=== PATIENT | male | born 1965 | race Caucasian/White ===

== ENCOUNTER 2019-12-01 19:38 | Emergency (ER) | payer OTHER ==
[~2019-12-01] VITALS: Ht 175.3 cm; Wt 76.2 kg
[2019-12-01] MEDS ORDERED: AMOXICILLIN875 MG PO (21:16)
[2019-12-01] MEDS ORDERED: CIPROFLOXIN HC2.5 M1 EA. EAR (21:16)
[2019-12-01 21:33] LABS: INFLUENZA A ANTIGEN Negative (Negative); INFLUENZA B ANTIGEN Negative (Negative)
[2019-12-01 21:35] LABS: ABSOLUTE EOSINOPHILS 0.1 thou/uL (0.0-0.7); ABSOLUTE LYMPHOCYTES 2.5 thou/uL (0.8-5.3); ABSOLUTE MONOCYTES 0.6 thou/uL (0.0-1.2); ABSOLUTE NEUTROPHILS 7.1 thou/uL (1.6-8.1); BASOPHILS 0.3 %; HEMATOCRIT 44.8 % (42.0-52.0); HEMOGLOBIN 15.3 gm/dL (14.0-18.0); LYMPHOCYTES 23.7 %; MCH 31.1 pg (26.0-34.0); MCHC 34.2 g/dL (28.0-37.0); MCV 90.9 fL (80.0-100.0); MONOCYTES 6.2 %; MPV 7.5 fl. (7.2-11.1); NUCLEATED RBCS 0 /100WBC; PLATELET COUNT* 249 thou/uL (150-400); POLYS 68.8 %; RBC 4.92 mil/uL (4.50-6.00); RDW-CV 14.2 % (10.5-14.5); WBC 10.4 thou/uL (4.0-11.0)
[2019-12-01 21:48] VITALS: BP 128/79
[2019-12-01 21:49] LABS: CALCIUM 9.2 mg/dL (8.5-10.1); CREATININE 0.7 mg/dL (0.6-1.3); POTASSIUM 3.7 mmol/L (3.5-5.1)
== END 2019-12-01 21:48 | disposition home or self-care (01) ==
LOC: M.ERS 19:38
PROVIDERS: Personal Emergency Response Attendant
DX: H66.91 Otitis media, unspecified, right ear (principal); R42 Dizziness and giddiness; R20.0 Anesthesia of skin

== ENCOUNTER 2020-08-28 20:51 | Emergency (ER) | payer OTHER ==
[~2020-08-28] VITALS: Ht 172.7 cm; Wt 77.1 kg
[~2020-08-28 20:51] MED LIST: AMOXICILLIN875 MG PO; CIPROFLOXIN HC2.5 M1 EA. EAR
[2020-08-28 21:35] LABS: ABSOLUTE EOSINOPHILS 0.1 thou/uL (0.0-0.7); ABSOLUTE LYMPHOCYTES 2.9 thou/uL (0.8-5.3); ABSOLUTE MONOCYTES 0.6 thou/uL (0.0-1.2); ABSOLUTE NEUTROPHILS 6.1 thou/uL (1.6-8.1); BASOPHILS 0.4 %; EOSINOPHILS 1.1 %; HEMATOCRIT 42.1 % (42.0-52.0); HEMOGLOBIN 14.3 gm/dL (14.0-18.0); LYMPHOCYTES 29.9 %; MCH 31.3 pg (26.0-34.0); MCV 92.1 fL (80.0-100.0); MONOCYTES 5.8 %; NUCLEATED RBCS 0 /100WBC; PLATELET COUNT* 227 thou/uL (150-400); POLYS 62.8 %; RBC 4.57 mil/uL (4.50-6.00); RDW-CV 14.1 % (10.5-14.5); WBC 9.8 thou/uL (4.0-11.0)
[2020-08-28 21:42] LABS: CALCIUM 9.1 mg/dL (8.5-10.1); CREATININE 0.8 mg/dL (0.6-1.3); POTASSIUM 3.7 mmol/L (3.5-5.1)
[2020-08-28 21:44] LABS: PROTIME 9.9 Seconds (9.20-11.50)
[2020-08-28 21:46] LABS: INR < 0.9
[2020-08-28 21:53] LABS: ALBUMIN 3.8 g/dL (3.4-5.0); MAGNESIUM 2.2 mg/dL (1.8-2.4); TOTAL BILIRUBIN 0.3 mg/dL (<0.1-1.0); TOTAL PROTEIN 6.8 g/dL (6.4-8.2)
[2020-08-28 22:41] LABS: URINE BILIRUBIN NEGATIVE (Negative); URINE BLOOD TRACE (Negative); URINE CLARITY CLEAR; URINE COLOR YELLOW; URINE GLUCOSE-RANDOM NEGATIVE (Negative); URINE KETONES NEGATIVE (Negative); URINE LEUKOCYTES-REFLEX NEGATIVE (Negative); URINE NITRITE-REFLEX NEGATIVE (Negative); URINE PROTEIN NEGATIVE (Negative); URINE UROBILINOGEN 0.2 E.U./dl (0.2-1.0)
[2020-08-28 22:52] LABS: AMP/METHAMP Negative (Negative); BARBITURATES Negative (Negative); BENZODIAZEPINES Negative (Negative); COCAINE Negative (Negative); METHADONE Negative (Negative); OPIATES Negative (Negative); PCP Negative (Negative); THC Negative (Negative)
[2020-08-29] MEDS ORDERED: AMOXICILLIN 50500 MG PO (00:03)
[2020-08-29 00:11] VITALS: BP 126/82
--- NOTE | 2020-08-29 10:05 | EKG ---
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
== END 2020-08-29 00:11 | disposition home or self-care (01) ==
LOC: M.ERS 20:51
PROVIDERS: Emergency Medicine
DX: R07.89 Other chest pain (principal); H92.01 Otalgia, right ear

== ENCOUNTER 2021-07-27 17:15 | Emergency (ER) | payer OTHER ==
[~2021-07-27] VITALS: Ht 172.7 cm; Wt 72.6 kg
[~2021-07-27 17:15] MED LIST changes: +AMOXICILLIN 50500 MG PO
[2021-07-27 17:55] LABS: ABSOLUTE BASOPHILS 0.1 thou/uL (0.0-0.2); ABSOLUTE EOSINOPHILS 0.1 thou/uL (0.0-0.7); ABSOLUTE MONOCYTES 0.5 thou/uL (0.0-1.2); ABSOLUTE NEUTROPHILS 4.5 thou/uL (1.6-8.1); BASOPHILS 0.7 %; EOSINOPHILS 1.3 %; HEMATOCRIT 42.4 % (42.0-52.0); HEMOGLOBIN 14.4 gm/dL (14.0-18.0); LYMPHOCYTES 37.4 %; MCH 30.9 pg (26.0-34.0); MCV 90.7 fL (80.0-100.0); MONOCYTES 5.6 %; MPV 6.9 fl. (7.2-11.1); NUCLEATED RBCS 0 /100WBC; PLATELET COUNT* 249 thou/uL (150-400); RBC 4.67 mil/uL (4.50-6.00); RDW-CV 13.6 % (10.5-14.5); WBC 8.1 thou/uL (4.0-11.0)
[2021-07-27] MEDS ORDERED: VISTARIL 25 MG25 M1 PO (18:26)
[2021-07-27] MEDS ORDERED: APAP W/CODEINE1 TA2 PO (18:26)
[2021-07-27] MEDS ORDERED: FLEXERIL PO (18:26)
[2021-07-27 18:28] LABS: URINE BILIRUBIN NEGATIVE (Negative); URINE BLOOD TRACE (Negative); URINE CLARITY CLEAR; URINE COLOR YELLOW; URINE GLUCOSE-RANDOM NEGATIVE (Negative); URINE KETONES NEGATIVE (Negative); URINE LEUKOCYTES-REFLEX NEGATIVE (Negative); URINE NITRITE-REFLEX NEGATIVE (Negative); URINE PROTEIN NEGATIVE (Negative); URINE UROBILINOGEN 0.2 E.U./dl (0.2-1.0)
[2021-07-27 18:29] LABS: CALCIUM 8.9 mg/dL (8.5-10.1); CREATININE 0.7 mg/dL (0.6-1.3); POTASSIUM 3.9 mmol/L (3.5-5.1)
[2021-07-27 18:40] VITALS: BP 145/70
[2021-07-27 18:42] LABS: ALBUMIN 3.9 g/dL (3.4-5.0); CK-MB MASS 2.7 ng/mL (<0.5-3.6); MAGNESIUM 2.3 mg/dL (1.8-2.4); TOTAL BILIRUBIN 0.3 mg/dL (<0.1-1.0); TOTAL PROTEIN 7.1 g/dL (6.4-8.2)
--- NOTE | 2021-07-28 09:32 | EKG ---
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
== END 2021-07-27 18:42 | disposition home or self-care (01) ==
LOC: M.ERS 17:15
PROVIDERS: Family Medicine; Physician Assistant
DX: F41.9 Anxiety disorder, unspecified (principal); R07.89 Other chest pain; M54.2 Cervicalgia

== ENCOUNTER 2021-08-19 14:40 | Emergency (ER) | payer OTHER ==
[~2021-08-19] VITALS: Ht 175.3 cm; Wt 74.4 kg
[~2021-08-19 14:40] MED LIST changes: +APAP W/CODEINE1 TA2 PO; +FLEXERIL PO; +VISTARIL 25 MG25 M1 PO
[2021-08-19 16:14] LABS: URINE BILIRUBIN NEGATIVE (Negative); URINE BLOOD TRACE (Negative); URINE CLARITY CLEAR; URINE COLOR YELLOW; URINE GLUCOSE-RANDOM NEGATIVE (Negative); URINE KETONES NEGATIVE (Negative); URINE LEUKOCYTES NEGATIVE (Negative); URINE NITRITE NEGATIVE (Negative); URINE PROTEIN NEGATIVE (Negative); URINE UROBILINOGEN 0.2 E.U./dl (0.2-1.0)
[2021-08-19 16:43] LABS: ABSOLUTE EOSINOPHILS 0.1 thou/uL (0.0-0.7); ABSOLUTE MONOCYTES 0.6 thou/uL (0.0-1.2); HEMOGLOBIN 14.9 gm/dL (14.0-18.0); NUCLEATED RBCS 0 /100WBC; WBC 7.2 thou/uL (4.0-11.0)
[2021-08-19 16:44] LABS: ABSOLUTE LYMPHOCYTES 2.8 thou/uL (0.8-5.3); ABSOLUTE NEUTROPHILS 3.7 thou/uL (1.6-8.1); BASOPHILS 0.1 %; EOSINOPHILS 1.5 %; HEMATOCRIT 44.6 % (42.0-52.0); LYMPHOCYTES 38.3 %; MCH 30.5 pg (26.0-34.0); MCHC 33.3 g/dL (28.0-37.0); MCV 91.7 fL (80.0-100.0); MONOCYTES 7.8 %; MPV 6.9 fl. (7.2-11.1); PLATELET COUNT* 257 thou/uL (150-400); POLYS 52.3 %; RBC 4.86 mil/uL (4.50-6.00); RDW-CV 14.2 % (10.5-14.5)
[2021-08-19 16:47] LABS: CREATININE 0.7 mg/dL (0.6-1.3); POTASSIUM 3.8 mmol/L (3.5-5.1)
[2021-08-19 16:52] LABS: ALBUMIN 3.9 g/dL (3.4-5.0); TOTAL BILIRUBIN 0.2 mg/dL (<0.1-1.0); TOTAL PROTEIN 7.3 g/dL (6.4-8.2)
[2021-08-19 18:18] VITALS: BP 142/90
== END 2021-08-19 18:19 | disposition home or self-care (01) ==
LOC: M.ERS 14:40
PROVIDERS: Physician Assistant
DX: R10.84 Generalized abdominal pain (principal); F41.9 Anxiety disorder, unspecified; F17.210 Nicotine dependence, cigarettes, uncomplicated